=== PATIENT | female | born 1990 | race Caucasian/White ===

== ENCOUNTER 2017-09-21 21:24 | Emergency (ER) | payer BC, OTHER ==
[~2017-09-21] VITALS: Ht 172.7 cm; Wt 73.1 kg
[2017-09-21 21:45] VITALS: TEMP 36.8; Ht 172.7 cm; Wt 73.1 kg
[2017-09-21] MEDS ORDERED: ONDANSETRON INJ 2 MG/ML 2 ML VIAL IV STA (22:16)
[2017-09-21] MEDS ORDERED: SODIUM CHLORIDE 0.9% 1000ML 1,000 ML IV STA (22:16)
[2017-09-21 22:32] VITALS: O2SAT 100
[2017-09-21 22:34] LABS: BASO % 0.2 %; BASO ABS # 0.02 K/uL (0-0.2); EOS % 1.8 %; EOS ABS # 0.15 K/uL (0-0.5); HEMATOCRIT 37.9 % (37-47); HEMOGLOBIN 13.5 g/dL (12.0-16.0); IG# 0.01 K/uL (0.00-0.02); LYMPH % 36.4 %; LYMPH ABS # 3.03 K/uL (1.2-3.4); MEAN CELL VOLUME 87.5 fL (80-100); MEAN CORPUSCULAR HEMOGLOBIN 31.2 pg (25-34); MEAN CORPUSCULAR HGB CONC 35.6 g/dl (32-36); MEAN PLATELET VOLUME 11.3 fL (7.4-10.4); MONO ABS # 0.58 K/uL (0.11-0.59); NEUT % 54.5 %; NEUT ABS # 4.54 K/uL (1.4-6.5); PLATELET COUNT 203 K/uL (130-400); RED CELL DISTRIBUTION WIDTH CV 12.3 % (11.5-14.5); WHITE BLOOD COUNT 8.33 K/uL (4.8-10.8)
[2017-09-21 22:44] LABS: PTT PATIENT 25.3 SECONDS (21.0-31.0)
[2017-09-21] MEDS ORDERED: MULT-506 PO (22:49)
[2017-09-21 23:01] LABS: ALBUMIN 4.2 gm/dl (3.4-5.0); CALCIUM 8.7 mg/dl (8.5-10.1); CREATININE 0.68 mg/dl (0.60-1.20); POTASSIUM 3.8 mmol/L (3.5-5.1); TOTAL PROTEIN 7.5 gm/dl (6.4-8.2)
[2017-09-22 00:56] VITALS: BP 119/72; PULSE 67; O2SAT 98
--- NOTE | 2017-09-22 05:37 | EMERGENCY ROOM VISIT NOTE ---
History First contact with patient: 22:00 Chief Complaint: PELVIC PAIN Stated Complaint: LT ABD PAIN, L SHOULDER PAIN,LIGHTHEADED 6WKS PREG History of Present Illness The patient is a 27 year old female who presents to the Emergency Room with complaints of light vaginal spotting with abdominal pain for the past several hours he was possibly 6 weeks . Last menstrual was 11 August. This is her first . She just moved to the area. She does not have an [facility]. Pain currently 5 out of 10. Nothing makes it better or worse. Patient denies radiating pain, chest pain, dyspnea, nausea, vomiting, diarrhea, back pain, flank pain, urinary symptoms. She is tolerating p.o. fluids and food. Review of Systems An 10 system review of systems was completed with positives and pertinent negatives listed in the HPI. Past Medical/Surgical History Left ovarian surgery Social History Smoking Status: Never Smoker Alcohol Use: occasionally Drug Use: none Current/Historical Medications Scheduled Multivitamin (Multivitamin), 1 TAB PO DAILY Physical Exam Vital Signs Date Time Temp Pulse Resp B/P (MAP) Pulse Ox O2 Delivery O2 Flow Rate FiO2 09/22/17 00:56 67 18 119/72 98 09/21/17 23:45 67 18 117/67 98 Room Air 09/21/17 22:34 61 09/21/17 22:32 100 Room Air 09/21/17 21:45 36.8 95 18 158/114 98 Room Air Physical Exam VITALS: Vitals are noted on the nurse's note and reviewed by myself. Vital signs stable. GENERAL: Pleasant female anxious appearing, in no acute distress, nondiaphoretic , well-developed well-nourished. SKIN: The skin was without rashes, erythema, edema, or bruising. There is no tenting of the skin. Capillary reflex less than 2 seconds. HEAD: Normocephalic atraumatic. EARS: External auditory canals clear, tympanic membranes pearly hamilton without erythema or effusion bilaterally. EYES: Pupils equal round and reactive to light and accommodation. Conjunctivae without injection, sclerae without icterus. Extraocular movements intact. NOSE: Patent, turbinates without inflammation or discharge. MOUTH: Mucous membranes moist. Pharynx without erythema or exudate. Uvula midline. Airway patent. Tongue does not deviate. NECK: Supple without nuchal rigidity. No lymphadenopathy. No thyromegaly. Cervical spine is nontender. No JVD. HEART: Regular rate and rhythm without murmurs gallops or rubs. LUNGS: Clear to auscultation bilaterally without wheezes, rales or rhonchi. No retractions or accessory muscle use. ABDOMEN: Positive bowel sounds x 4. Normal tympanic percussion. Soft, nontender, without masses or organomegaly. Mejia sign negative. No guarding or rebound tenderness. No CVA tenderness MUSCULOSKELETAL: No muscle atrophy, erythema, or edema noted. NEURO: Patient was alert and oriented to person place and time. Normal sensation to light and sharp touch. No focal neurological deficits. Medical Decision & Procedures Laboratory Results 09/21/17 22:21 Red Blood Count 4.33, Mean Corpuscular Volume 87.5, Mean Corpuscular Hemoglobin 31.2, Mean Corpuscular Hemoglobin Concent 35.6, Mean Platelet Volume 11.3, Neutrophils (%) (Auto) 54.5, Lymphocytes (%) (Auto) 36.4, Monocytes (%) (Auto) 7.0, Eosinophils (%) (Auto) 1.8, Basophils (%) (Auto) 0.2, Neutrophils # (Auto) 4.54, Lymphocytes # (Auto) 3.03, Monocytes # (Auto) 0.58, Eosinophils # (Auto) 0.15, Basophils # (Auto) 0.02 09/21/17 22:21 Test 09/21/17 22:21 09/21/17 22:38 White Blood Count 8.33 K/uL (4.8-10.8) Red Blood Count 4.33 M/uL (4.2-5.4) Hemoglobin 13.5 g/dL (12.0-16.0) Hematocrit 37.9 % (37-47) Mean Corpuscular Volume 87.5 fL (80-100) Mean Corpuscular Hemoglobin 31.2 pg (25-34) Mean Corpuscular Hemoglobin Concent 35.6 g/dl (32-36) Platelet Count 203 K/uL (130-400) Mean Platelet Volume 11.3 fL (7.4-10.4) Neutrophils (%) (Auto) 54.5 % Lymphocytes (%) (Auto) 36.4 % Monocytes (%) (Auto) 7.0 % Eosinophils (%) (Auto) 1.8 % Basophils (%) (Auto) 0.2 % Neutrophils # (Auto) 4.54 K/uL (1.4-6.5) Lymphocytes # (Auto) 3.03 K/uL (1.2-3.4) Monocytes # (Auto) 0.58 K/uL (0.11-0.59) Eosinophils # (Auto) 0.15 K/uL (0-0.5) Basophils # (Auto) 0.02 K/uL (0-0.2) RDW Standard Deviation 40.0 fL (36.4-46.3) RDW Coefficient of Variation 12.3 % (11.5-14.5) Immature Granulocyte % (Auto) 0.1 % Immature Granulocyte # (Auto) 0.01 K/uL (0.00-0.02) Prothrombin Time 10.2 SECONDS (9.0-12.0) Prothromb Time International Ratio 1.0 (0.9-1.1) Activated Partial Thromboplast Time 25.3 SECONDS (21.0-31.0) Partial Thromboplastin Ratio 1.0 Anion Gap 8.0 mmol/L (3-11) Est Creatinine Clear Calc Drug Dose 123.1 ml/min Estimated GFR () 137.0 Estimated GFR (Non- 118.2 BUN/Creatinine Ratio 14.7 (10-20) Calcium Level 8.7 mg/dl (8.5-10.1) Total Bilirubin 0.4 mg/dl (0.2-1) Aspartate Amino Transf (AST/SGOT) 11 U/L (15-37) Alanine Aminotransferase (ALT/SGPT) 18 U/L (12-78) Alkaline Phosphatase 42 U/L (45-117) Total Protein 7.5 gm/dl (6.4-8.2) Albumin 4.2 gm/dl (3.4-5.0) Globulin 3.3 gm/dl (2.5-4.0) Albumin/Globulin Ratio 1.3 (0.9-2) Human Chorionic Gonadotropin, Quant 7093 mIU/mL Urine Color YELLOW Urine Appearance CLEAR (CLEAR) Urine pH 6.0 (4.5-7.5) Urine Specific [place] 1.021 (1.000-1.030) Urine Protein NEG (NEG) Urine Glucose (UA) NEG (NEG) Urine Ketones TRACE (NEG) Urine Occult Blood 2+ (NEG) Urine Nitrite NEG (NEG) Urine Bilirubin NEG (NEG) Urine Urobilinogen NEG (NEG) Urine Leukocyte Esterase SMALL (NEG) Urine WBC (Auto) 1-5 /hpf (0-5) Urine RBC (Auto) 0-4 /hpf (0-4) Urine Hyaline Casts (Auto) 1-5 /lpf (0-5) Urine Epithelial Cells (Auto) >30 /lpf (0-5) Urine Bacteria (Auto) NEG (NEG) Medications Administered Medications (Trade) Dose Ordered Sig/Geena Route Start Time Stop Time Status Last Admin Dose Admin Sodium Chloride 1,000 ml @ 999 mls/hr Q1H1M STAT IV 09/21/17 22:16 09/21/17 23:16 DC 09/21/17 22:34 999 MLS/HR Ondansetron HCl (Zofran Inj) 4 mg NOW STAT IV 09/21/17 22:16 09/21/17 22:19 DC 09/21/17 22:34 4 MG ED Course Prior records/ancillary studies reviewed. Triage Nursing notes reviewed. The patient's history was concerning for vaginal bleeding and abdominal pain who is . Differential diagnosis: Etiologies such as ectopic , dysfunction uterine bleeding, bleeding dyscrasia, trauma, infection, as well as others were entertained. Physical examination: As above. Vitals signs revealed stable. ER treatment provided: IV fluids On reassessment the patient felt better. Diagnostic interpretation by me: The labs revealed the patient to the Rh a positive. CBC, coagulation studies, and chemistries were unremarkable. Urinalysis revealed no sign of infection. Quantitative hCG was 7000 Imaging studies: Ultrasound as above US OB 1st TRIMESTER: Early IUP with yolk sac and small pole. Suspect early motion with heart rate of 85 beats/minute. Implantation bleed/subchorionic hemorrhage. Complex left adnexal lesion measuring 2.1 cm. Could be complex corpus luteum cyst. Differential can include coexisting ectopic. Recommend short-term followup Right ovary is within normal limits. Radiologist: Christiano Brown M.D. Consultation: A consultation was placed with the corrugated box machine operator physician, Dr. Miranda. The case was discussed and diagnostics were reviewed. She states is highly unlikely for the patient have an ectopic and recommends outpatient follow-up and repeat ultrasound in 1 week. She will follow-up with the patient and contact her tomorrow or someone from her clinic. This appears to be consistent with threatened miscarriage. Patient was advised to repeat the pelvic ultrasound 1 week with [facility]. Patient had minimal bleeding. She was neurovascularly and neurologically intact. She has had prior surgery to this left ovary and this most likely is the abnormality seen on ultrasound. She did not have acute abdomen on exam. Repeat abdominal exam was benign. She is stable H&H. She is not tachycardic. She was not hypotensive. She was advised to rest, stay well-hydrated and follow-up with OB this week or here in the ER sooner for heavy bleeding, pain, weakness, worsening signs or symptoms or as needed. Patient ambulated out of this ER without difficulties. By the evaluation outlined above emergent etiologies such as bleeding dyscrasia, ectopic , trauma, as well as others were deemed relatively unlikely. The pt informed about the findings as listed above. All questions were answered and pleased with the treatment. Return instructions were outlined and the patient was discharged in stable condition. Referral: The patient was referred to [facility] for follow-up in 2 to 3 days for a recheck of her current condition. Case reviewed with my attending The chart was completed utilizing [employer] Speech voice recognition software. Grammatical errors, random word insertions, pronoun errors, and incomplete sentences are an occassional consequence of this system due to software limitations, ambient noise, and hardware issues. Any formal questions or concerns about the content, text, or information contained within the body of this dictation should be directly addressed to the physician investment sales assistant for clarification. Medical Decision As above Medication Reconcilliation Current Medication List: was personally reviewed by me Blood Pressure Screening Patient's blood pressure: Normal blood pressure Impression Primary Impression: Threatened miscarriage Departure Information Dispostion Home / Self-Care Condition GOOD Forms WORK / SCHOOL INSTRUCTIONS, HOME CARE DOCUMENTATION FORM, IMPORTANT VISIT INFORMATION Patient Instructions My [facility], ED Miscarriage Poss Additional Instructions [facility] will contact you tomorrow for your follow-up appointment. Rest. Stay well hydrated. No strenuous activity or intercourse until cleared by [facility]. Acetaminophen(Tylenol) may be used for fever or pain. Use 1000mg every six hours as needed. Avoid using more than 3000mg in a 24 hour period. Rest and drink plenty of fluids as tolerated. Continue current medications. Return to the ER immediately for worsening or persistent heavy vaginal bleeding , abdominal pain, vomiting, fevers, chest pains, difficulty breathing, worsening of your condition, or as needed. Follow up with your [facility] in in 1 week for a recheck of your current condition and repeat ultrasound.
--- NOTE | 2017-09-22 07:40 | DIAGNOSTIC IMAGING REPORT ---
<14 WKS SINGLE CLINICAL HISTORY: 6 wks preg, severe pelvic pain, ? ectopic COMPARISON STUDY: None. FINDINGS: Transabdominal and transvaginal scanning of the pelvis was performed. There is a single intrauterine gestational sac and 3 mm exact. There appears to be a 2 mm pole. An early heart rate is suggested. The exact beats per minute are difficult to determine but appears to be approximately 85. Small implantation bleed/subchorionic hemorrhage is noted. This is considered to be within the range normal limits. Complex left ovarian lesion measuring 2.1 cm. This demonstrates internal vascular flow raising the possibility of an ovarian mass. This is connected to the left ovary. Therefore, the possibility of an ectopic is considered unlikely. Normal right ovary. IMPRESSION: 1. A single viable 6 week intrauterine gestation. The pole is approximately 2 mm. An early heart rate is suggested measuring 85 bpm. 2. A 2.5 cm complex left ovarian lesion. This demonstrates internal vascular flow concerning for an ovarian mass. Therefore, one to 2 week pelvic ultrasound follow is recommended to ensure viability and to further assess the left ovarian lesion. In addition, gynecologic follow-up is recommended. Electronically signed by: Dhiraj Deluca M.D. 09/22/2017 7:39 AM Dictated Date/Time: 09/22/2017 7:32 AM
== END 2017-09-22 00:56 | disposition home or self-care (01) ==
LOC: C.EDB 21:26 → C.EDA 09-22 00:56
DX: O20.0 Threatened abortion (principal)